=== PATIENT | female | born 1970 | race African-American/Black ===

== ENCOUNTER 2023-06-29 08:55 | Emergency (ER) | payer BC, SELFPAY ==
[2023-06-29 08:58] VITALS: BP 154/88
--- NOTE | 2023-06-29 10:06 | ED.GENMED ---
History of Present Illness
General
Chief Complaint: Vaginal Bleeding
Source: patient
Exam Limitations: none
Time Seen by Provider: 06/29/23 09:54
Nursing documentation reviewed up to this point in time: agreed with
Travel History
Have you had any contact with someone who has COVID-19?: No
Do you have any symptoms of coronavirus? Fever > 100 degrees, chills, cough, shortness of breath, sore throat, loss of taste or smell, muscle aches, or headache?: No
History of Present Illness
History of Present Illness:
52 y/o F with h/o HTN, ruptured kidney cyst suspected to have caused anemai previously
on iron
heavy vag bleeding x 11 days, using 4 pads per day with some passage of clots
no syncope, but feels fatigued
denies fever, chills, abdominal pain, cp, sob
has required transfusion 1 year ago
incidentally has had atrophy of her kidney probably due to this cyst rupture previously and had outpatient US which was unable to visualize the kidney an dpt was ordered to have CTAP but she has not had it yet and is asking to have it done.
Past History
Past History
ED Past Medical History: Other (anemia)
Social History
Tobacco: Former smoker
Alcohol: Occasional
Family History
Family History: Negative Diabetes, Hypertension or CAD
Review of Systems
Review of Systems
Allergies reviewed?: Yes
All Other Systems: Not applicable
Phy Exam
Physical Exam
Physical Exam:
GENERAL: Alert , in no apparent distress
EYE: pupils equal and reactive
NECK: Supple
ENT: o/p clr, mmm.
CARDIAC: Regular rate and rhythm .
LUNGS: Clear breath sounds bilaterally, no acute respiratory distress, no wheezes/rales/rhonchi
ABDOMEN: Soft, without focal tenderness, no r/g, no cvat, normal bowel sounds
NEUROLOGICAL: Alert and oriented, no focal neuro deficits
SKIN: Warm and dry, skin intact.
MUSCULOSKELETAL: No edema, well perfused. neg lizbeth's sign
PSYCH: Normal and appropriate interaction.
Course
Orders/Labs/Results
Orders:
Orders
06/29/23 10:14
US Pelvis Only (non-obstetric) Urgent
Comment:
Reason For Exam: heavy vag bleeding x 11 days
06/29/23 11:03
Type+Screen Urgent
Basic Metabolic Panel Urgent
Complete Blood Count/With Diff Urgent
Ferritin Urgent
HCG, Serum Qualitative Screen Urgent
Comment: ADD ON
Iron Urgent
Myurd-Wrgh-Qnyvcve Urgent
Potassium Urgent
TSH Reflex To Free T4 Urgent
Total Iron Binding Urgent
06/29/23 12:01
Add On- LAB Urgent
Tests Added?: hcg qual s4erum
Abnormal Lab Results
06/29/23
11:03
RBC 2.74 L 10^6/uL
(4.20-5.40)
Hgb 9.5 L g/dL
(12.0-16.0)
Hct 27.5 L %
(37.0-47.0)
MCV 100.4 H fL
(81.0-99.0)
MCH 34.7 H pg
(27.0-31.0)
BUN 19 H mg/dl
(7-17)
06/29/23 11:03
06/29/23 11:03
Vital Signs
Initial and Last Documented VS:
Initial Vital Signs
Temp Pulse Resp BP Pulse Ox
98.2 F 77 16 154/88 100
06/29/23 08:58 06/29/23 08:58 06/29/23 08:58 06/29/23 08:58 06/29/23 08:58
Last Documented Vital Signs
Temp Pulse Resp BP Pulse Ox
98.2 F 64 19 131/72 100
06/29/23 08:58 06/29/23 15:34 06/29/23 13:40 06/29/23 15:34 06/29/23 15:34
MDM/Problems Addressed
Differential Diagnosis Includes:
menorrhagia, symptomatic anemia, thyroid dysfucntion, fibroids
MDM/Problems Addressed:
52 y/o F
h/o anemia on iron
here with 11 days vag bleeding 3-4 pads daily
not briskly bleeding
no pain
mild fatigue, watned hg checked
also incidentally has atrophy L kidney (from previous ruptured cyst that cwas thought to have caused anemia to begin within 2019)
she had outpatient US of brandee last week and has rx for ct with contrast because they couldn't find her L kidney on US
she is asking if this can be performed but it is not related to today's visit and she likely has atrophic kidney
her reanl function is normal
she has appt with neprhoogist in 2 weeks
her w/u here for meonorrhagia shows hg 9, whic his not requiring of transfusion
fibroids in utuers
has gyne appt in a few days
will defer treatment to them, she is not hypotensive or bleeidng briskly.
d/c hoem
*Critical Care Note
Total Time (30-74mins, 75-104mins- exclusive of procedures): Not Applicable
ED Attending Note
-
Portions of this chart may have been created with voice recognition software.� Occasional wrong word or��sound alike� substitutions may have occurred due to the inherent limitations of voice recognition software.
Discharge Plan
Departure
Patient Disposition: Home (Routine Discharge)
Date of Disposition: 06/29/23
Time of Disposition: 15:05
Patient with high blood pressure during this ER visit?: Yes
Condition: Fair
Covid-19: Not Applicable
Discharge Problem:
Menorrhagia, Anemia
Instructions: Heavy Periods (DC), Anemia caused by low iron in adults - Discharge instructions, BLOOD PRESSURE
Prescriptions:
No Action
fexofenadine 180 mg tablet
180 mg PO QPM
amlodipine 5 mg tablet
5 mg PO BID
ferrous sulfate 325 mg (65 mg iron) tablet
325 mg PO TID Qty: 90 0RF
Referrals:
Ramya Ram CRNP [Family Provider] - Follow up in 2-3 days
Activity Restrictions/Additional Instructions:
You are anemic today but you do not require a blood transfusion. Please reach out to your ostomy nurse for further workup
keep taking your blood builder
you may need some hormones to stop or slowt he bleeding
your ostomy nurse can assist with that
you had fibroids on your ultrasound
please have your cat scan for your kidney done as an outpatient
return for any concerns like passing out, severe bleeding, or any concerns.
Interventions
Interventions:
*Risk Screen - Suicide Last Done: 06/29/23 11:08
*General Assessment Last Done: 06/29/23 11:08
*Neglect/Abuse Screening Last Done: 06/29/23 11:08
ED- Fall Risk Assessment Last Done: 06/29/23 11:08
*ED COVID-19 Vaccine History Last Done: 06/29/23 08:58
*Nursing Disposition Last Done: 06/29/23 15:35
ED-Female Genitourinary Assessment Last Done: 06/29/23 11:08
Discharge Date and Time
Discharge Date/Time: 06/29/23 15:35
Print Language: YORUBA
[2023-06-29 11:07] VITALS: BMI 31.4
[2023-06-29 11:11] VITALS: BP 132/84
[2023-06-29 11:16] LABS: % Basophils 0.8 % (0-2); % Immature Granulocytes 0.2 % (0-0.5); % Monocytes 6.6 % (1.7-9.3); % Neutrophils 60.4 % (42.2-75.2); Absolute Eosinophils 0.2 10^3/uL (0-0.7); Absolute Lymphocytes 1.5 10^3/uL (1.2-3.4); Absolute Monocytes 0.3 10^3/uL (0.1-0.6); Hematocrit 27.5 % (37.0-47.0); Hemoglobin 9.5 g/dL (12.0-16.0); Mean Corp Hgb Conc. 34.5 g/dL (33.0-37.0); Mean Corpuscular Hgb 34.7 pg (27.0-31.0); Mean Corpuscular Volume 100.4 fL (81.0-99.0); Mean Platelet Volume 9.3 fL (7.4-10.4); Nucleated Red Blood Cells % 0 %; Platelet Count 307 10^3/uL (130-400); Red Blood Cell Count 2.74 10^6/uL (4.20-5.40); Red Cell Dist. Width 11.8 % (11.5-14.5)
[2023-06-29 11:35] LABS: Blood Urea Nitrogen 19 mg/dl (7-17); Calcium 9.1 mg/dl (8.4-10.2); Carbon Dioxide 29 mmol/L (22-30); Chloride 101 mmol/L (98-107); Estimated Creatinine Clearance 74 ml/min; Glucose 84 mg/dl (70-99); Sodium 135 mmol/L (135-145); eGFR > 60.00
[2023-06-29 12:00] LABS: ALT (SGPT) 14 U/L (0-35); AST (SGOT) 24 U/L (14-36); Albumin 4.3 g/dl (3.5-5.0); Alkaline Phosphatase 46 U/L (38-126); Direct Bilirubin 0.3 mg/dl (0.0-0.4); Iron 110 ug/dl (37-170); Potassium 3.8 mmol/L (3.5-5.1); TSH Reflex To Free T4 0.77 uIU/ml (0.47-4.68); Total Bilirubin 0.4 mg/dl (0.2-1.3); Total Protein 7.6 g/dl (6.3-8.2)
[2023-06-29 12:09] LABS: Percent Saturation 34 % (20-50); Total Iron Binding Capacity 322 ug/dl (265-497)
[2023-06-29 12:17] LABS: HCG, Serum Qualitative Screen Negative
--- NOTE | 2023-06-29 13:20 | EDRN ---
Pedrito LEES in room w/ pt at this time.
[2023-06-29 13:40] VITALS: BP 156/90
[2023-06-29 15:34] VITALS: BP 131/72
== END 2023-06-29 15:35 | disposition home or self-care (01) ==
LOC: EMR 08:55
PROVIDERS: Physician Assistant; EMERGENCY PHYSICIAN Emergency Medicine; FAMILY PHYSICIAN Family Medicine Adult Medicine
DX: N92.0 Excessive and frequent menstruation with regular cycle (principal); D64.9 Anemia, unspecified; N93.9 Abnormal uterine and vaginal bleeding, unspecified; I10 Essential (primary) hypertension; Z87.891 Personal history of nicotine dependence
CPT/HCPCS: 99284; 76856; 80048; 80076; 82728; 83540; 83550; 84132; 84443; 84703; 85025; 86850; 86900; 86901